=== PATIENT | female | born 1960 | race Caucasian/White ===

== ENCOUNTER → 2019-08-02 | Outpatient (CLI) | payer BC ==
[2019-08-02 19:58] LABS: Dermato. farinae IgE <0.10 kU/L; Oak IgE <0.10 kU/L
[2019-08-02 19:59] LABS: Elm IgE <0.10 kU/L; Ragweed,Common IgE <0.10 kU/L
[2019-08-02 20:00] LABS: Red Top (Bentgrass) IgE <0.10 kU/L
[2019-08-02 20:44] LABS: Alternaria alternata IgE <0.10 kU/L; Aspergillus fumagatus IgE <0.10 kU/L; Birch IgE <0.10 kU/L; Cladosporian herbarum IgE <0.10 kU/L; Cockroach IgE <0.10 kU/L; Maple (Box Elder) IgE <0.10 kU/L
[2019-08-02 20:46] LABS: Cat Epith & Dander IgE <0.10 kU/L; Dog Dander IgE <0.10 kU/L
== END | disposition home or self-care (01) ==
LOC: LABWHC1 12:43
PROVIDERS: ATTEND Internal Medicine Critical Care Medicine
DX: R06.00 Dyspnea, unspecified (principal)
CPT/HCPCS: 36415; 82103; 82785; 85008; 86003

== ENCOUNTER → 2019-08-17 | Outpatient (CLI) | payer BC ==
[2019-08-17 17:31] LABS: African American GFR (CKD) >90 (>60 ml/min/1.73 sqM); Blood Urea Nitrogen 21 mg/dL (7-17)
--- NOTE | 2019-08-18 09:29 | CT ---
EXAMINATION TYPE: CT chest w con DATE OF EXAM: 08/17/2019 COMPARISON: Prior CT chest 12/23/2012 HISTORY: Dyspnea CT DLP: 375.5 mGycm Automated exposure control for dose reduction was used. CONTRAST: CT scan of the chest is performed with IV Contrast, patient injected with 100 mL of Isovue 300. FINDINGS: LUNGS: The lungs are grossly clear, there is no concerning parenchymal mass or nodule identified. The re are parenchymal bands in the lower lobes likely reflecting scarring or atelectasis. There is no p leural effusion or pneumothorax seen. The tracheobronchial tree is patent. MEDIASTINUM: There are no greater than 1 cm hilar or mediastinal lymph nodes. No pericardial effusi on is seen. There are coronary artery calcifications AORTA: No additional significant abnormality is seen. OTHER: Postcholecystectomy change noted, low attenuation within the liver could be due to hepatic st eatosis. Degenerative change present at the sternoclavicular joint on the right, there is vacuum phen omenon present, thoracic spondylosis is present. IMPRESSION: Some basilar scarring or atelectasis present. Coronary artery disease. Additional findin gs above.
== END | disposition home or self-care (01) ==
LOC: RADCTMAIN 16:38
PROVIDERS: ATTEND Internal Medicine Critical Care Medicine
DX: I25.10 Atherosclerotic heart disease of native coronary artery without angina pectoris (principal); Z88.2 Allergy status to sulfonamides
CPT/HCPCS: 82565; 84520; 71260; 36415; Q9967

== ENCOUNTER 2021-03-16 10:43 | Inpatient (IN) | payer BC ==
[2021-03-17 12:25] VITALS: BMI 34.2
[2021-03-21 08:24] VITALS: BP 186/99; RESP 19; TEMP 97.9
[2021-03-21 09:43] VITALS: PULSE 78
== END 2021-03-21 13:44 | disposition home or self-care (01) | DRG 194 ==
LOC: EC 10:43 → 3SCARD 12:56 → 4SSUR 14:00
PROVIDERS: ADMIT Internal Medicine; ATTEND Internal Medicine
DX: J18.9 Pneumonia, unspecified organism (principal); E44.1 Mild protein-calorie malnutrition; R18.8 Other ascites; Z20.822 Contact with and (suspected) exposure to COVID-19; E11.9 Type 2 diabetes mellitus without complications; F41.9 Anxiety disorder, unspecified; K20.90 Esophagitis, unspecified without bleeding; E88.01 Alpha-1-antitrypsin deficiency; Z79.4 Long term (current) use of insulin; E78.5 Hyperlipidemia, unspecified; N20.0 Calculus of kidney; E87.70 Fluid overload, unspecified; R11.2 Nausea with vomiting, unspecified; R19.7 Diarrhea, unspecified; J45.909 Unspecified asthma, uncomplicated; I10 Essential (primary) hypertension; Z90.49 Acquired absence of other specified parts of digestive tract; Z98.891 History of uterine scar from previous surgery; Z88.2 Allergy status to sulfonamides; Z79.82 Long term (current) use of aspirin; Z79.899 Other long term (current) drug therapy; Z79.51 Long term (current) use of inhaled steroids; Z87.01 Personal history of pneumonia (recurrent); Z68.34 Body mass index [BMI] 34.0-34.9, adult; Z91.011 Allergy to milk products
CPT/HCPCS: 36415; 71046; 74177; 80048; 80053; 82103; 83036; 83605; 84484; 85025; 85610; 85730; 87040; 87070; 87205; 87449; 87635; 93005; 94640; 96365; 96375; 99285

== ENCOUNTER 2021-07-16 09:54 | Emergency (ER) | payer BC ==
[2021-07-16 10:10] VITALS: BP 130/80; RESP 18; TEMP 98.5
[2021-07-16] MEDS ORDERED: DEXAMETHASONE SOD PHOSPHATE 10 MG/ML 1 ML VIAL IV STA (10:17)
[2021-07-16 10:46] LABS: Basophils % (A) 1 %; Eosinophils # (A) 0.3 k/uL (0-0.7); Eosinophils % (A) 3 %; HCT 39.3 % (34.0-46.0); HGB 12.9 gm/dL (11.4-16.0); Lymphocytes # (A) 1.9 k/uL (1.0-4.8); Lymphocytes % (A) 25 %; MCH 29.4 pg (25.0-35.0); MCHC 32.7 g/dL (31.0-37.0); MCV 89.7 fL (80.0-100.0); Mean Platelet Volume 7.4; Monocytes # (A) 0.5 k/uL (0-1.0); Monocytes % (A) 7 %; Neutrophils # (A) 4.6 k/uL (1.3-7.7); Neutrophils % (A) 60 %; Platelet Count 292 k/uL (150-450); RBC 4.38 m/uL (3.80-5.40); RDW 12.8 % (11.5-15.5); WBC 7.7 k/uL (3.8-10.6)
[2021-07-16 10:58] LABS: ALT 34 U/L (4-34); AST 39 U/L (14-36); African American GFR (CKD) >90 (>60 ml/min/1.73 sqM); Albumin 4.5 g/dL (3.5-5.0); Alkaline Phosphatase 67 U/L (38-126); Anion Gap 12 mmol/L; Blood Urea Nitrogen 17 mg/dL (7-17); Calcium 9.7 mg/dL (8.4-10.2); Carbon Dioxide 24 mmol/L (22-30); Chloride 100 mmol/L (98-107); Glucose 182 mg/dL (74-99); Non-African American GFR(CKD) >90 (>60 ml/min/1.73 sqM); Potassium 3.9 mmol/L (3.5-5.1); Sodium 136 mmol/L (137-145); Total Bilirubin 0.5 mg/dL (0.2-1.3); Total Protein 7.4 g/dL (6.3-8.2)
[2021-07-16 11:03] LABS: INR 0.9 (<1.2)
--- NOTE | 2021-07-16 11:07 | XR ---
EXAMINATION TYPE: XR chest 2V DATE RECEIVED ON: 07/16/2021 DATE PERFORMED: 07/16/2021 COMPARISON: NONE HISTORY: Difficulty breathing history of asthma TECHNIQUE: Frontal and lateral views of the chest are obtained. FINDINGS: The heart size is normal. The pulmonary vasculature is normal. There is mild increase in filtrated along the right middle lobe better visualized on the lateral projection. Previous left lowe r lobe infiltrate has resolved. IMPRESSION: 1. Right middle lobe infiltrate. Correlate for atelectasis.
--- NOTE | 2021-07-16 11:09 | ED ---
SOB HPI - General Chief Complaint: Shortness of Breath Stated Complaint: sorethroat Time Seen by Provider: 07/16/21 10:12 Source: patient, RN notes reviewed Mode of arrival: ambulatory Limitations: no limitations - History of Present Illness Initial Comments: Patient is a 61-year-old female that presents to emergency department complaining of bronchitis without getting better. She notes she was diagnosed on was given amoxicillin for possible pneumonia. Patient notes that she has not been tugging at her she is still having shortness of breath on exertion. She was otherwise well-appearing. She denied any Covid test recently. She was in no apparent distress. She denied any chest pain headache nausea vomiting diarrhea constipation fever fatigue chills. - Related Data Home Medications Medication Instructions Recorded Confirmed Albuterol Inhaler [Ventolin Hfa 2 puff INHALATION RT-Q4H PRN 03/16/21 03/16/21 Inhaler] Aspirin EC [Ecotrin Low Dose] 81 mg PO DAILY 03/16/21 03/16/21 Atorvastatin [Lipitor] 20 mg PO DAILY 03/16/21 03/16/21 Benzonatate [Tessalon Perles] 100 mg PO TID PRN 03/16/21 03/16/21 Budesonide/Glycopyr/Formoterol 2 puff INHALATION RT-BID 03/16/21 03/16/21 [Breztri Aerosphere Inhaler] Ergocalciferol [Vitamin D2 (1250 1,250 mcg PO Q7D 03/16/21 03/16/21 Mcg = 74617 Iu)] Fluticasone Nasal [place] [Flonase 1 spr EA NOSTRIL DAILY 03/16/21 03/16/21 Nasal [place]] Fluticasone/Umeclidin/Vilanter 1 puff INHALATION RT-HS 03/16/21 03/16/21 [Trelegy Ellipta 100-62.5-25] HYDROcodone/APAP 10-325MG [[place] 1 tab PO QID 03/16/21 03/16/21 10-325] Insulin Aspart [NovoLOG Flexpen] 20 units SQ AC-BID@0800,1700 03/16/21 03/16/21 Insulin Glargine,Hum.rec.anlog 25 unit SQ HS 03/16/21 03/16/21 [Lantus Solostar Pen] Ipratropium-Albuterol Nebulize 3 ml INHALATION RT-DAILY 03/16/21 03/16/21 [Duoneb 0.5 mg-3 mg/3 ml Soln] Liraglutide [Victoza 3-Laci] 1.8 mg SQ DAILY 03/16/21 03/16/21 Losartan/Hydrochlorothiazide 1 tab PO DAILY 03/16/21 03/16/21 [Hyzaar 100-25 Tablet] Montelukast [Singulair] 10 mg PO HS 03/16/21 03/16/21 Ondansetron Odt [Zofran ODT] 4 mg PO BID PRN 03/16/21 03/16/21 Previous Rx's Medication Instructions Recorded Cefuroxime Axetil [Ceftin] 500 mg PO BID 6 Days #12 tab 03/21/21 Ipratropium-Albuterol Nebulize 3 ml INHALATION BID PRN #90 ml 07/16/21 [Duoneb 0.5 mg-3 mg/3 ml Soln] predniSONE 50 mg PO DAILY #5 tab 07/16/21 Allergies Allergy/AdvReac Type Severity Reaction Status Date / Time milk AdvReac Unknown Verified 07/16/21 10:10 Sulfa (Sulfonamide AdvReac Nausea Verified 07/16/21 10:10 Antibiotics) Review of Systems ROS Statement: Those systems with pertinent positive or pertinent negative responses have been documented in the HPI. ROS Other: All systems not noted in ROS Statement are negative. Past Medical History Past Medical History: Diabetes Mellitus, Hypertension Additional Past Medical History / Comment(s): alpha one tripsen History of Any Multi-Drug Resistant Organisms: None Reported Past Surgical History: Section, Cholecystectomy, Tonsillectomy Additional Past Surgical History / Comment(s): endometroisis Past Psychological History: No Psychological Hx Reported Smoking Status: Never smoker Past Alcohol Use History: None Reported Past Drug Use History: None Reported - Past Family History Father Family Medical History: Cancer, Diabetes Mellitus Additional Family Medical History / Comment(s): colon cancer Mother Family Medical History: CVA/TIA General Exam Limitations: no limitations General appearance: alert, in no apparent distress Head exam: Present: atraumatic, normocephalic, normal inspection Eye exam: Present: normal appearance, PERRL, EOMI. Absent: scleral icterus, conjunctival injection, periorbital swelling ENT exam: Present: normal exam, mucous membranes moist Neck exam: Present: normal inspection Respiratory exam: Present: normal lung sounds bilaterally. Absent: respiratory distress, wheezes, rales, rhonchi, stridor Cardiovascular Exam: Present: regular rate, normal rhythm, normal heart sounds. Absent: systolic murmur, diastolic murmur, rubs, gallop, clicks Extremities exam: Present: normal inspection, full ROM, normal capillary refill. Absent: tenderness, pedal edema, joint swelling, calf tenderness Neurological exam: Present: alert, oriented X3 Psychiatric exam: Present: normal affect, normal mood Skin exam: Present: warm, dry, intact, normal color. Absent: rash Course Vital Signs 07/16/21 07/16/21 07/16/21 10:07 11:04 11:44 Temperature 98.5 F Pulse Rate 94 92 Respiratory 18 18 Rate Blood Pressure 130/80 O2 Sat by Pulse 94 L Oximetry 07/16/21 12:01 Temperature Pulse Rate 90 Respiratory Rate Blood Pressure O2 Sat by Pulse Oximetry Medical Decision Making - Medical Decision Making 61-year-old female complaining of shortness of breath on exertion diagnosed with bronchitis 4 days ago. Labs, chest x-ray, 10 mg of Decadron, Covid test ordered. Labs unremarkable. Covid test negative. Chest x-ray shows right middle lobe infiltrate. Patient was instructed to continue her antibiotics until complete and continue at home DuoNeb treatments. Patient's has bronchitis was informed that it may take some time to work over. Case discussed with Dr. Issa, patient discharge home. - Lab Data Result diagrams: 07/16/21 10:07/16/21 10:27 Lab Results 07/16/21 07/16/21 07/16/21 Range/Units 10:27 10: 10:27 WBC 7.7 (3.8-10.6) k/uL RBC 4.38 (3.80-5.40) m/uL Hgb 12.9 (11.4-16.0) gm/dL Hct 39.3 (34.0-46.0) % MCV 89.7 (80.0-100.0) fL MCH 29.4 (25.0-35.0) pg MCHC 32.7 (31.0-37.0) g/dL RDW 12.8 (11.5-15.5) % Plt Count 292 (150-450) k/uL MPV 7.4 Neutrophils % 60 % Lymphocytes % 25 % Monocytes % 7 % Eosinophils % 3 % Basophils % 1 % Neutrophils # 4.6 (1.3-7.7) k/uL Lymphocytes # 1.9 (1.0-4.8) k/uL Monocytes # 0.5 (0-1.0) k/uL Eosinophils # 0.3 (0-0.7) k/uL Basophils # 0.0 (0-0.2) k/uL PT 10.0 (9.0-12.0) sec INR 0.9 (<1.2) APTT 21.5 L (22.0-30.0) sec Sodium 136 L (137-145) mmol/L Potassium 3.9 (3.5-5.1) mmol/L Chloride 100 (98-107) mmol/L Carbon Dioxide 24 (22-30) mmol/L Anion Gap 12 mmol/L BUN 17 (7-17) mg/dL Creatinine 0.70 (0.52-1.04) mg/dL Est GFR (CKD-EPI)AfAm >90 (>60 ml/min/1.73 sqM) Est GFR (CKD-EPI)NonAf >90 (>60 ml/min/1.73 sqM) Glucose 182 H (74-99) mg/dL Plasma Lactic Acid Oral (0.7-2.0) mmol/L Calcium 9.7 (8.4-10.2) mg/dL Total Bilirubin 0.5 (0.2-1.3) mg/dL AST 39 H (14-36) U/L ALT 34 (4-34) U/L Alkaline Phosphatase 67 (38-126) U/L Total Protein 7.4 (6.3-8.2) g/dL Albumin 4.5 (3.5-5.0) g/dL Coronavirus (PCR) (Not Detectd) 07/16/21 07/16/21 Range/Units 10:27 10:27 WBC (3.8-10.6) k/uL RBC (3.80-5.40) m/uL Hgb (11.4-16.0) gm/dL Hct (34.0-46.0) % MCV (80.0-100.0) fL MCH (25.0-35.0) pg MCHC (31.0-37.0) g/dL RDW (11.5-15.5) % Plt Count (150-450) k/uL MPV Neutrophils % % Lymphocytes % % Monocytes % % Eosinophils % % Basophils % % Neutrophils # (1.3-7.7) k/uL Lymphocytes # (1.0-4.8) k/uL Monocytes # (0-1.0) k/uL Eosinophils # (0-0.7) k/uL Basophils # (0-0.2) k/uL PT (9.0-12.0) sec INR (<1.2) APTT (22.0-30.0) sec Sodium (137-145) mmol/L Potassium (3.5-5.1) mmol/L Chloride (98-107) mmol/L Carbon Dioxide (22-30) mmol/L Anion Gap mmol/L BUN (7-17) mg/dL Creatinine (0.52-1.04) mg/dL Est GFR (CKD-EPI)AfAm (>60 ml/min/1.73 sqM) Est GFR (CKD-EPI)NonAf (>60 ml/min/1.73 sqM) Glucose (74-99) mg/dL Plasma Lactic Acid Oral 1.5 (0.7-2.0) mmol/L Calcium (8.4-10.2) mg/dL Total Bilirubin (0.2-1.3) mg/dL AST (14-36) U/L ALT (4-34) U/L Alkaline Phosphatase (38-126) U/L Total Protein (6.3-8.2) g/dL Albumin (3.5-5.0) g/dL Coronavirus (PCR) Not Detected (Not Detectd) - Radiology Data Radiology results: report reviewed, image reviewed Chest x-ray: Right middle lobe infiltrate correlate for atelectasis. Disposition Clinical Impression: Bronchitis, Shortness of breath Disposition: HOME SELF-CARE Condition: Stable Instructions (If sedation given, give patient instructions): Acute Bronchitis (ED) Additional Instructions: Please return to the Emergency Department if symptoms worsen or any other concerns. Follow-up with primary care 1-2 days. Continue take antibiotics until complete. Is patient prescribed a controlled substance at d/c from ED?: No Referrals: Shay Henderson DO [Primary Care Provider] - 1-2 days Time of Disposition: 12:11
[2021-07-16 11:15] LABS: Partial Thromboplastin Time 21.5 sec (22.0-30.0)
[2021-07-16] MEDS ORDERED: IPRATROPIUM-ALBUTEROL 3 ML NEB INHALATION STA (11:38)
[2021-07-16 12:28] VITALS: PULSE 95
== END 2021-07-16 12:34 | disposition home or self-care (01) ==
LOC: EC 09:54
DX: J40 Bronchitis, not specified as acute or chronic (principal); E11.9 Type 2 diabetes mellitus without complications; I10 Essential (primary) hypertension; Z79.4 Long term (current) use of insulin; Z79.52 Long term (current) use of systemic steroids; Z79.51 Long term (current) use of inhaled steroids; Z79.82 Long term (current) use of aspirin; Z79.899 Other long term (current) drug therapy
CPT/HCPCS: 36415; 94640; 80053; 83605; 85025; 85610; 85730; 87635; 71046; 99285; 96374; J1100

== ENCOUNTER 2021-09-26 10:45 | Emergency (ER) | payer BC ==
[2021-09-26 10:51] VITALS: RESP 18; TEMP 98.3
[2021-09-26] MEDS ORDERED: SODIUM CHLORIDE 0.9% 500 ML 500 ML IV STA (11:23)
[2021-09-26] MEDS ORDERED: RX INFO: IV CONTRAST WAS GIVEN 1 EACH MISC MISCELLANE PRN (11:23)
--- NOTE | 2021-09-26 11:26 | ED ---
General Adult HPI - General Chief complaint: Recheck/Abnormal Lab/Rx Stated complaint: possible collapsed lung Time Seen by Provider: 09/26/21 11:12 Source: patient Mode of arrival: ambulatory Limitations: no limitations - History of Present Illness Initial comments: 61-year-old female presents to the emergency room for chest CT. Patient's primary care doctor told her she needed to emergently obtain CAT scan as she could not wait for outpatient scan. Patient reports that she has had a cough for a few weeks and been on Augmentin for 7 days for pneumonia. She was going to be switched to Levaquin today. States she is having productive sputum yel low in nature. Patient denies fevers. Slight shortness of breath.There was mass versus consolidation on chest x-ray. Patient has no other complaints at this time including chest pain, abdominal pain, nausea or vomiting, headache, or visual changes. - Related Data Home Medications Medication Instructions Recorded Confirmed Albuterol Inhaler [Ventolin Hfa 2 puff INHALATION RT-Q4H PRN 03/16/21 03/16/21 Inhaler] Aspirin EC [Ecotrin Low Dose] 81 mg PO DAILY 03/16/21 03/16/21 Atorvastatin [Lipitor] 20 mg PO DAILY 03/16/21 03/16/21 Benzonatate [Tessalon Perles] 100 mg PO TID PRN 03/16/21 03/16/21 Budesonide/Glycopyr/Formoterol 2 puff INHALATION RT-BID 03/16/21 03/16/21 [Breztri Aerosphere Inhaler] Ergocalciferol [Vitamin D2 (1250 1,250 mcg PO Q7D 03/16/21 03/16/21 Mcg = 68476 Iu)] Fluticasone Nasal [place] [Flonase 1 spr EA NOSTRIL DAILY 03/16/21 03/16/21 Nasal [place]] Fluticasone/Umeclidin/Vilanter 1 puff INHALATION RT-HS 03/16/21 03/16/21 [Trelegy Ellipta 100-62.5-25] HYDROcodone/APAP 10-325MG [[place] 1 tab PO QID 03/16/21 03/16/21 10-325] Insulin Aspart [NovoLOG Flexpen] 20 units SQ AC-BID@0800,1700 03/16/21 03/16/21 Insulin Glargine,Hum.rec.anlog 25 unit SQ HS 03/16/21 03/16/21 [Lantus Solostar Pen] Ipratropium-Albuterol Nebulize 3 ml INHALATION RT-DAILY 03/16/21 03/16/21 [Duoneb 0.5 mg-3 mg/3 ml Soln] Liraglutide [Victoza 3-Laci] 1.8 mg SQ DAILY 03/16/21 03/16/21 Losartan/Hydrochlorothiazide 1 tab PO DAILY 03/16/21 03/16/21 [Hyzaar 100-25 Tablet] Montelukast [Singulair] 10 mg PO HS 03/16/21 03/16/21 Ondansetron Odt [Zofran ODT] 4 mg PO BID PRN 03/16/21 03/16/21 Previous Rx's Medication Instructions Recorded Cefuroxime Axetil [Ceftin] 500 mg PO BID 6 Days #12 tab 03/21/21 Ipratropium-Albuterol Nebulize 3 ml INHALATION BID PRN #90 ml 07/16/21 [Duoneb 0.5 mg-3 mg/3 ml Soln] predniSONE 50 mg PO DAILY #5 tab 07/16/21 Allergies Allergy/AdvReac Type Severity Reaction Status Date / Time milk AdvReac Unknown Verified 09/26/21 10:48 Sulfa (Sulfonamide AdvReac Nausea Verified 09/26/21 10:48 Antibiotics) Review of Systems ROS Statement: Those systems with pertinent positive or pertinent negative responses have been documented in the HPI. ROS Other: All systems not noted in ROS Statement are negative. Past Medical History Past Medical History: Diabetes Mellitus, Hypertension Additional Past Medical History / Comment(s): alpha one tripsen History of Any Multi-Drug Resistant Organisms: None Reported Past Surgical History: Section, Cholecystectomy, Tonsillectomy Additional Past Surgical History / Comment(s): endometroisis Past Psychological History: No Psychological Hx Reported Smoking Status: Never smoker Past Alcohol Use History: None Reported Past Drug Use History: None Reported - Past Family History Father Family Medical History: Cancer, Diabetes Mellitus Additional Family Medical History / Comment(s): colon cancer Mother Family Medical History: CVA/TIA General Exam Limitations: no limitations General appearance: alert, in no apparent distress Head exam: Present: atraumatic Eye exam: Present: normal appearance, PERRL, EOMI. Absent: scleral icterus, conjunctival injection ENT exam: Present: normal exam, mucous membranes moist Neck exam: Present: normal inspection, full ROM. Absent: tenderness Respiratory exam: Present: normal lung sounds bilaterally, wheezes (slight wheezing). Absent: respiratory distress, rales, rhonchi, stridor Cardiovascular Exam: Present: regular rate, normal rhythm, normal heart sounds GI/Abdominal exam: Present: soft, normal bowel sounds. Absent: distended, tenderness Course Vital Signs 09/26/21 09/26/21 10:48 13:00 Temperature 98.3 F Pulse Rate 90 88 Respiratory 18 18 Rate Blood Pressure 143/80 133/83 O2 Sat by Pulse 95 Oximetry Medical Decision Making - Medical Decision Making Vitals are stable. Patient is well appearing. No respiratory distress. She does have a cough noted. CBC does show leukocytosis with a white count of 13.8. CMP unremarkable. COVID-19 detected. Patient was sent in by her doctor for a CT of the chest. This did show mild progression of consolidation involving the right upper lobe anterior segment most typical of chronic atelectasis. There is underlying pneumonia or neoplasm felt to be less likely but not entirely excluded I discussed these findings with patient. Patient has a prescription of Levaquin she is supposed to take. I did offer to switch this to azithromycin as this may have more benefit in a good patient's however she states this doesn't work for her and wants to continue Levaquin. I did recommend and offer antibody infusion but patient refused. Her daughter states they gave her the symptoms of Covid. Pt to be discharged home with copy of ct disc for her doctor. - Lab Data Result diagrams: 09/26/21 11:41 09/26/21 11:41 Lab Results 09/26/21 09/26/21 09/26/21 Range/Units 11:41 11:41 11:41 WBC 13.8 H (3.8-10.6) k/uL RBC 4.68 (3.80-5.40) m/uL Hgb 14.0 (11.4-16.0) gm/dL Hct 41.7 (34.0-46.0) % MCV 88.9 (80.0-100.0) fL MCH 29.9 (25.0-35.0) pg MCHC 33.6 (31.0-37.0) g/dL RDW 12.3 (11.5-15.5) % Plt Count 367 (150-450) k/uL MPV 7.8 Neutrophils % 61 % Lymphocytes % 28 % Monocytes % 7 % Eosinophils % 3 % Basophils % 1 % Neutrophils # 8.4 H (1.3-7.7) k/uL Lymphocytes # 3.8 (1.0-4.8) k/uL Monocytes # 0.9 (0-1.0) k/uL Eosinophils # 0.4 (0-0.7) k/uL Basophils # 0.1 (0-0.2) k/uL Sodium 137 (137-145) mmol/L Potassium 4.0 (3.5-5.1) mmol/L Chloride 101 (98-107) mmol/L Carbon Dioxide 25 (22-30) mmol/L Anion Gap 11 mmol/L BUN 24 H (7-17) mg/dL Creatinine 0.70 (0.52-1.04) mg/dL Est GFR (CKD-EPI)AfAm >90 (>60 ml/min/1.73 sqM) Est GFR (CKD-EPI)NonAf >90 (>60 ml/min/1.73 sqM) Glucose 85 (74-99) mg/dL Plasma Lactic Acid Oral (0.7-2.0) mmol/L Calcium 9.6 (8.4-10.2) mg/dL Total Bilirubin 0.7 (0.2-1.3) mg/dL AST 37 H (14-36) U/L ALT 35 H (4-34) U/L Alkaline Phosphatase 56 (38-126) U/L Total Protein 7.6 (6.3-8.2) g/dL Albumin 4.3 (3.5-5.0) g/dL Coronavirus (PCR) Detected A (Not Detectd) 09/26/21 Range/Units 11:41 WBC (3.8-10.6) k/uL RBC (3.80-5.40) m/uL Hgb (11.4-16.0) gm/dL Hct (34.0-46.0) % MCV (80.0-100.0) fL MCH (25.0-35.0) pg MCHC (31.0-37.0) g/dL RDW (11.5-15.5) % Plt Count (150-450) k/uL MPV Neutrophils % % Lymphocytes % % Monocytes % % Eosinophils % % Basophils % % Neutrophils # (1.3-7.7) k/uL Lymphocytes # (1.0-4.8) k/uL Monocytes # (0-1.0) k/uL Eosinophils # (0-0.7) k/uL Basophils # (0-0.2) k/uL Sodium (137-145) mmol/L Potassium (3.5-5.1) mmol/L Chloride (98-107) mmol/L Carbon Dioxide (22-30) mmol/L Anion Gap mmol/L BUN (7-17) mg/dL Creatinine (0.52-1.04) mg/dL Est GFR (CKD-EPI)AfAm (>60 ml/min/1.73 sqM) Est GFR (CKD-EPI)NonAf (>60 ml/min/1.73 sqM) Glucose (74-99) mg/dL Plasma Lactic Acid Oral 1.4 (0.7-2.0) mmol/L Calcium (8.4-10.2) mg/dL Total Bilirubin (0.2-1.3) mg/dL AST (14-36) U/L ALT (4-34) U/L Alkaline Phosphatase (38-126) U/L Total Protein (6.3-8.2) g/dL Albumin (3.5-5.0) g/dL Coronavirus (PCR) (Not Detectd) Disposition Clinical Impression: COVID-19, Cough, Consolidation lung Disposition: HOME SELF-CARE Condition: Good Instructions (If sedation given, give patient instructions): Coronavirus Disease 2019 (COVID-19) Additional Instructions: Please take prescriptions as prescribed by you doctor. Please follow-up with your doctor in one to 2 days. Follow-up on CAT scan results. Return to the emergency room for any worsening symptoms. Is patient prescribed a controlled substance at d/c from ED?: No Referrals: Shay Henderson DO [Primary Care Provider] - 1-2 days Time of Disposition: 13:55
[2021-09-26 11:55] LABS: Basophils # (A) 0.1 k/uL (0-0.2); Basophils % (A) 1 %; Eosinophils # (A) 0.4 k/uL (0-0.7); Eosinophils % (A) 3 %; HCT 41.7 % (34.0-46.0); Lymphocytes # (A) 3.8 k/uL (1.0-4.8); Lymphocytes % (A) 28 %; MCH 29.9 pg (25.0-35.0); MCHC 33.6 g/dL (31.0-37.0); MCV 88.9 fL (80.0-100.0); Mean Platelet Volume 7.8; Monocytes # (A) 0.9 k/uL (0-1.0); Monocytes % (A) 7 %; Neutrophils # (A) 8.4 k/uL (1.3-7.7); Neutrophils % (A) 61 %; Platelet Count 367 k/uL (150-450); RBC 4.68 m/uL (3.80-5.40); RDW 12.3 % (11.5-15.5); WBC 13.8 k/uL (3.8-10.6)
[2021-09-26 12:03] LABS: ALT 35 U/L (4-34); African American GFR (CKD) >90 (>60 ml/min/1.73 sqM); Albumin 4.3 g/dL (3.5-5.0); Anion Gap 11 mmol/L; Blood Urea Nitrogen 24 mg/dL (7-17); Calcium 9.6 mg/dL (8.4-10.2); Carbon Dioxide 25 mmol/L (22-30); Chloride 101 mmol/L (98-107); Glucose 85 mg/dL (74-99); Non-African American GFR(CKD) >90 (>60 ml/min/1.73 sqM); Sodium 137 mmol/L (137-145); Total Bilirubin 0.7 mg/dL (0.2-1.3); Total Protein 7.6 g/dL (6.3-8.2)
[2021-09-26 12:26] LABS: AST 37 U/L (14-36); Alkaline Phosphatase 56 U/L (38-126)
--- NOTE | 2021-09-26 13:22 | CT ---
EXAMINATION TYPE: CT chest w con DATE OF EXAM: 09/26/2021 COMPARISON: 08/17/2019, 03/18/2021 HISTORY: mass vs consolidation CT DLP: 359.2 mGycm Automated exposure control for dose reduction was used. TECHNIQUE: CT scan of the chest is performed with IV Contrast, patient injected with 100 mL of Isovue 300. MIP Images are created on CT scanner and reviewed. 3D reconstructed images are created on an independent workstation and reviewed. FINDINGS: LUNGS: Vague subsegmental consolidation seen in the anterior segment right upper lobe has slightly pr ogressed from prior exam most likely related to chronic atelectasis. No pleural effusion or pneumotho rax. No focal pneumonia. MEDIASTINUM: There are no greater than 1 cm hilar or mediastinal lymph nodes. No pericardial effusi on is seen. Coronary artery calcification. OTHER: Hypertrophic and degenerative change of the spine. Postcholecystectomy changes noted. IMPRESSION: 1. Mild progression of consolidation involving the right upper lobe anterior segment most typical of chronic atelectasis. Underlying pneumonia or neoplasm felt less likely but not entirely excluded martin elate clinically.
[2021-09-26 13:51] VITALS: BP 133/83; PULSE 88
== END 2021-09-26 14:04 | disposition home or self-care (01) ==
LOC: EC 10:45
DX: U07.1 COVID-19 (principal); J12.82 Pneumonia due to coronavirus disease 2019; D72.829 Elevated white blood cell count, unspecified; I10 Essential (primary) hypertension; E11.9 Type 2 diabetes mellitus without complications; Z91.011 Allergy to milk products; Z88.2 Allergy status to sulfonamides; Z79.899 Other long term (current) drug therapy; Z79.4 Long term (current) use of insulin; Z79.82 Long term (current) use of aspirin; Z79.84 Long term (current) use of oral hypoglycemic drugs
CPT/HCPCS: 36415; 80053; 83605; 85025; 87635; 71260; 99285; Q9967

== ENCOUNTER → 2022-07-23 | Outpatient (CLI) | payer BC ==
--- NOTE | 2022-07-23 09:54 | MR ---
EXAMINATION TYPE: MR lumbar spine wo con DATE OF EXAM: 07/23/2022 COMPARISON: NONE HISTORY: Low back pain that radiates down both legs due to fall off porch and landed on object. TECHNIQUE: T1 and T2 axial and sagittal images of the lumbar spine are submitted. FINDINGS: There is no abnormal signal seen within the visualized spinal cord or paraspinal soft tissu es. At L1-2 there is there is degenerative disc disease and disc desiccation. No disc herniation or canal stenosis foraminal. At L2-3 there is no degenerative disc disease or disc herniation. No canal stenosis or foraminal. Hyp ertrophic change since. At L3-4 there is disc desiccation with hypertrophic facet arthropathy. No canal stenosis or foraminal . Encroachment. At L4-5 there is grade 1 anterolisthesis with advanced facet arthropathy. Broad-based bulging results in mild flattening of the thecal sac. Hypertrophic changes and ligamentum flavum results in borderli ne central stenosis, mild right and moderate left At L5-S1 there is disc desiccation with advanced facet arthropathy there is a synovial cyst extending off the left facet resulting in lateral compression of thecal sac measuring 8 mm. There is circumfer ential disc bulging greater laterally to the left with mild left-sided foraminal encroachment. IMPRESSION: 1. Advanced facet arthropathy L4-5 and L5-S1 with grade 1 anterolisthesis of L4 on L5. Findings resul t in bilateral foraminal encroachment and borderline central stenosis L4-L5. 2. Advanced facet arthropathy at L5-S1 with disc bulging greater laterally to the left. There is an 8 mm synovial cyst on the left resulting in lateral compression of the thecal sac. Foraminal encroachm ent bilaterally greater on the left secondary to left lateral disc bulging or small protrusion.
== END | disposition home or self-care (01) ==
LOC: RADMRIMAIN 08:27
PROVIDERS: ATTEND Orthopaedic Surgery
DX: M43.16 Spondylolisthesis, lumbar region (principal); M47.816 Spondylosis without myelopathy or radiculopathy, lumbar region; M48.061 Spinal stenosis, lumbar region without neurogenic claudication; M51.26 Other intervertebral disc displacement, lumbar region
CPT/HCPCS: 72148

== ENCOUNTER → 2022-09-12 | Outpatient (CLI) | payer BC ==
[2022-09-12 10:09] VITALS: BP 138/71; PULSE 78; RESP 16; TEMP 97.4
--- NOTE | 2022-09-12 14:43 | P.PAINPG ---
PQRS Measure Charge Sheet Comment: HISTORY OF PRESENT ILLNESS: 62 yr old female as a referral from Dr Xavier presents today w severe and chronic LBP x 2 yrs secondary to for evaluation. Pt states pain level is at 9/10 in intensity, constant, localized in the lower lumbar spine, sharp/ burning in character w shooting pain towards the BL hips, L knee and BLEs. Pain is provoked by standing/ walking for periods of 30 min or more. Pain is alleviated by PT x 6 wks in Aug 2022, heat, medications ([place], Ibuprofen), topicals, repositioning and rest. PMH: Diabetes Mellitus, HTN, Endometriosis, Alpha-1 Tripsen Deficiency PSH: Section, Cholecystectomy, Tonsillectomy SH: Negative x3 FH: Fa- Colon CA/ DM. Mo- CVA/ TIA. All: See list Meds: See list REVIEW OF ORGAN SYSTEMS: CONSTITUTIONAL: No fevers or chills. No recent weight loss. NEUROLOGICAL: + numbness and tingling along the distal extremities. No seizure disorders or headaches. MUSCULOSKELETAL: + pain PSYCHIATRIC: Denies current depression or suicidal thoughts. Physical Examinations : Constitutional : Cooperative , not in acute distress . Neurologic : Cranial nerve II to XII intact. No focal neurological deficits. Psychiatric : alert & oriented x 3. Matching mood & appropriate affect. Judgment & insight intact. Musculoskeletal : Cervical Spine Motor strength in the deltoid and b iceps: Normal right side. Normal Left side Motor strength biceps and the wrist extensors: Normal right side . Normal left side Motor strength in the triceps muscle: Normal right side. Normal left side Deep tendon reflexes: Normal at the biceps. Normal at Brachioradialis. Normal at triceps Vertebral body tenderness to deep palpation over Cervical facet loading test: positive bilaterally Spurling test: positive bilaterally Neck distraction test: positive bilaterally Jana sign: positive bilaterally Lumbar spine Motor strength lower extremities ,thigh and legs 5/5 Right side , 5/5 Left side Deep tendon reflexes : Normal Knee Jerk. Normal Ankle Jerk Vertebral body tenderness over L4 Lumbar facet Loading Test: positive Right / positive Left Range of motion of the lumbar spine Flexion 30 degrees, extension 10 degrees Straight Leg Raise test: Left/ Right positive at degree Adan test: positive right / positive left. Severe tenderness over the Sacroiliac joint on the Right / Left sides Gaenslen test: positive bilaterally Seated flexion test: positive bilaterally. Sacral spine : Severe tenderness over the Sacroiliac joint: right side / left side Range of motion: Flexion of the lumbar spine <60 degrees Range of motion: Extension of the lumbar spine <20 degrees Gaenslen's Test positive Gamaliel's Test positive Adan test: positive right side / left side Thigh Thrust Test Sacral Thrust Test Imaging: MRI without contrast of the lumbar spine from 07/23/22 reviewed Assessment/ Plan : Lumbar DDD, lumbar anterolisthesis Recommendation of SHANNON L4-L5. May need a series of injections, up to 3 within a 6 month timeframe, for optimal pain relief. Risks, benefits of procedure discussed and patient verbalized understanding. Admits to aspirin or anti- coagulant use or medical history of diabetes. Protocol for discontinuation/ continuation of medications kanchan procedure discussed. All questions answered. I have spent greater than 30 minutes on patient care today. Dr Pierson was available by phone for the evaluation of this patient. The time was used to review the medical records including relevant urine studies and Prescription history (MAPs), review of the available imaging, evaluation and examination of the patient, coordination of care with the medical staff and if applicable referring physicians, as well as creation of the medical record Home Medications: Ambulatory Orders Albuterol Inhaler [Ventolin Hfa Inhaler] 2 puff INHALATION RT-Q4H PRN 03/16/21 Aspirin EC [Ecotrin Low Dose] 81 mg PO DAILY 03/16/21 Atorvastatin [Lipitor] 20 mg PO DAILY 03/16/21 Ergocalciferol [Vitamin D2 (1250 Mcg = 75696 Iu)] 1,250 mcg PO Q7D 03/16/21 Fluticasone Nasal [place] [Flonase Nasal [place]] 1 spr EA NOSTRIL DAILY 03/16/21 Fluticasone/Umeclidin/Vilanter [Trelegy Ellipta 100-62.5-25] 1 puff INHALATION RT-HS 03/16/21 HYDROcodone/APAP 10-325MG [[place] 10-325] 1 tab PO QID 03/16/21 Insulin Aspart [NovoLOG Flexpen] 20 units SQ AC-BID@0800,1700 03/16/21 Insulin Glargine,Hum.rec.anlog [Lantus Solostar Pen] 25 unit SQ HS 03/16/21 Ipratropium-Albuterol Nebulize [Duoneb 0.5 mg-3 mg/3 ml Soln] 3 ml INHALATION RT-DAILY 03/16/21 Losartan/Hydrochlorothiazide [Hyzaar 100-25 Tablet] 1 tab PO DAILY 03/16/21 Montelukast [Singulair] 10 mg PO HS 03/16/21 Ondansetron Odt [Zofran ODT] 4 mg PO BID PRN 03/16/21 Ipratropium-Albuterol Nebulize [Duoneb 0.5 mg-3 mg/3 ml Soln] 3 ml INHALATION BID PRN #90 ml 07/16/21 DULoxetine HCL [Cymbalta] 30 mg PO DAILY 09/12/22 Loratadine [Claritin] 10 mg PO DAILY 09/12/22 Controlled Substance Measures - Controlled Substance Measures Is patient prescribed a controlled substance at discharge?: No
== END ==
LOC: PNWHC3 09:31
PROVIDERS: ATTEND Specialist
DX: M43.16 Spondylolisthesis, lumbar region (principal); M51.36 Other intervertebral disc degeneration, lumbar region; E11.9 Type 2 diabetes mellitus without complications; I10 Essential (primary) hypertension; Z79.82 Long term (current) use of aspirin; Z79.4 Long term (current) use of insulin; Z79.01 Long term (current) use of anticoagulants; Z88.2 Allergy status to sulfonamides; Z91.011 Allergy to milk products
CPT/HCPCS: 99211

== ENCOUNTER 2022-10-17 08:36 | Day surgery (SDC) | payer BC ==
[2022-10-15 10:54] VITALS: BMI 37.0
[2022-10-17] MEDS ORDERED: LIDOCAINE 1% (10MG/ML) FOR IV START INTRADERMA PRN (08:54)
[2022-10-17] MEDS ORDERED: LACTATED RINGERS 1,000 ML IV SCH (08:54)
[2022-10-17 09:01] VITALS: TEMP 97.7
[2022-10-17] MEDS ORDERED: ONDANSETRON 4 MG/2 ML VIAL ONE (09:14)
[2022-10-17 09:22] LABS: Glucose,Whole Blood 153 mg/dL (70-110)
[2022-10-17] MEDS ORDERED: methylPREDNISolone ACETATE 40 MG/ML 1 ML VIAL ONE (09:23)
[2022-10-17] MEDS ORDERED: fentaNYL (PF) 50 MCG/ML 2 ML AMP ONE (09:23)
[2022-10-17] MEDS ORDERED: MIDAZOLAM 2 MG/2 ML VIAL ONE (09:23)
[2022-10-17] MEDS ORDERED: IOPAMIDOL M200 10 ML VIAL ONE (09:23)
--- NOTE | 2022-10-17 09:32 | P.PCN ---
Date of Procedure: 10/17/22 Procedure(s) Performed: PREOPERATIVE DIAGNOSIS: 1- Lumbar Degenerative Disc Diseases 2-Lumbar spondylosis with Facet arthropathy without myelopathy. POSTOPERATIVE DIAGNOSIS: Same as preop diagnosis. PROCEDURE 1. Lumbar epidural steroid injection under fluoroscopic guidance at the L4-5 level. (Fluoroscopy imaging was available in radiology department) 2. Lumbar epidurogram. ANESTHESIA: moderate sedation with intravenous Versed 2 mg ,and fentanyle 50 Mcg Sedation start time : 0 924 Sedation end time : 0930 EBL: Minimal PROCEDURE INDICATION: The patient with low back pain and radiculitis symptoms unresponsive to conservative treatment. Fluoroscopy was used to optimize visualization of the needle placement and to maximize safety. PROCEDURE DESCRIPTION / TECHNIQUE: The patient was seen and identified in the preoperative area. Risks, benefits, complications including but not limited to infections ,bleeding ,allergic reaction to the medications ,nerve damage and not complete pain releife , and alternatives were discussed with the patient. The patient agreed to proceed with the procedure and signed the consent. IV was started, and vital signs were stable. Patient was taken to the OR and time out was completed. The patient was placed in the prone position on procedure table and a pillow was placed under the abdomen to reduce lumbar lordosis. The lumbosacral area was prepped and draped in the usual sterile fashion.ere closely monitored during the procedure. Conscious sedation was used during the procedure to decrease patients anxiety. Vital signs was monitered during the entire procedure. Using anterior-posterior fluoroscopy, the L4-5 interlaminar space was identified and the skin over this site was marked and then infiltrated with 1% lidocaine subcutaneously. Subsequently, a 20-gauge Tuohy epidural needle was inserted and advanced toward the epidural space using the ``Loss of resistance technique and guided by AP and lateral fluoroscopy. The correct needle position in the epidural space was verified with the injection of 2 mL of the water soluble contrast dye Isovue 200 contrast and observing an excellent epidurogram with the epidural spread of the dye, after negative aspiration for blood and CSF and in the absence of paresthesias. Again after negative aspiration, a 6 ml mixture containing 40 mg of Depo-medrol ( Preservetive Free ), and 2 ml of preservative free Normal Saline, and 2 ml of preservative free lidocaine 1% solution was injected and a washout of epidurogram was seen. Needle was withdrawn intact, skin was cleansed, and bandages were applied. COMPLICATIONS: None DISPOSITION / PLANS: The patient was placed in a supine position and transferred to the recovery area in a stable condition for observation. There was no evidence of lower extremity motor or sensory deficit after the procedure. Patient was discharged from the recovery room after meeting discharge criteria. Home discharge instructions were given to the patient by the staff. The patient was reexamined prior to discharge. The patient will schedule a follow up in the clinic in 2-4 weeks.
[2022-10-17] MEDS ORDERED: IV FLUID CONTINUATION 1,000 ML IV ONE (09:36)
[2022-10-17 09:42] LABS: Glucose,Whole Blood 170 mg/dL (70-110)
[2022-10-17 09:51] VITALS: BP 110/73; PULSE 79; RESP 16
--- NOTE | 2022-10-17 09:57 | FL ---
EXAMINATION TYPE: FL guided pain mgmt statistic DATE OF EXAM: 10/17/2022 HISTORY: Fluoroscopy time 2 seconds of fluoroscopy provided. IMPRESSION: 1. Fluoroscopy time.
== END 2022-10-17 10:05 | disposition home or self-care (01) ==
LOC: ORPAIN 08:36
PROVIDERS: ATTEND Specialist
DX: M51.16 Intervertebral disc disorders with radiculopathy, lumbar region (principal); M47.26 Other spondylosis with radiculopathy, lumbar region; Z88.2 Allergy status to sulfonamides; Z91.011 Allergy to milk products
CPT/HCPCS: 62323; J2250; J1030; J3010; Q9966

== ENCOUNTER → 2022-11-04 | Outpatient (CLI) | payer BC ==
[2022-11-04 09:35] VITALS: BP 124/73; PULSE 77; TEMP 97.8
--- NOTE | 2022-11-04 14:31 | P.PAINPG ---
Objective - Vital Signs Vital signs: Intake & Output 11/03/22 11/04/22 11/04/22 18:59 06:59 18:59 Weight 86.183 kg PQRS Measure Charge Sheet Comment: A 62 yr old female w daughter at side with a history of severe and chronic LBP secondary to lumbar DDD and spondylosis with facet arthropathy without myelopathy presents today for evaluation s/p SHANNON L4-L5. Pt states she experienced 80% pain relief x 1 wk s/p procedure. Pain level is provoked at 7 /10 in intensity, intermittent, localized in the lumbar spine, throbbing in character w shooting towards the BL hip, LEs and feet. Pain is provoked by bending, lifting. Pain is alleviated with PT x 6 wks in Jul 2022, meds ([place], Ibu), topicals, heat, repositioning and rest . Interventional pain procedures completed include SHANNON L4-L5 Patient is currently on [place], Ibu Patient denies any side effects of the medication(s), denies excessive drowsiness or sleepiness, denies suicidal ideation and reports that the current pain medication is helping to control the pain and improve activities of daily living. Patient denies any motor or sensory deficits. Patient denies any fever or night sweats, denies any change in the bowel movements or urination. Physical Examination: -Constitutional: Cooperative. Not in acute distress . - Neurologic: Cranial nerve II to XII intact. No focal neurological deficits. - Psychatric: Alert & oriented x 3. Matching mood & appropriate affect. Judgment and insight intact. - Musculoskeletal: Cervical spine: Muscle bulk/ tone/ strength in the bilateral upper extremities normal Vertebral body tenderness to palpation over Spurling test positive Distraction test positive Facet loading test positive Thoracic spine Muscle bulk / tone/ strength in the bilateral paraspinal muscles normal Vertebral body tender to palpation over Facet loading test positive Lumbar spine: Motor bulk/ tone/ strength lower extremities , thigh and legs : 5/5 Deep tendon reflexes : Normal Knee Jerk. Normal Ankle Jerk . Vertebral body tenderness to palpation over Lumbar Facet Loading Test positive jump reflex over BL L4-L5, L5-S1 facets Straight Leg Raise: positive at 30 degrees right side/ left side Gaenslen's Test positive Sacral spine : Severe tenderness over the Sacroiliac joint: right side / left side Range of motion: Flexion of the lumbar spine <60 degrees Range of motion: Extension of the lumbar spine <20 degrees Gaenslen's Test positive Adan test: positive right side / left side Thigh Thrust Test Sacral Thrust Test Assessment and plan: Chronic LBP secondary to lumbar DDD, spondylosis with facet arthropathy without myelopathy Recommendation of BL facet block of the medial branches L4-L5, L5-S1 #1. May need a series, up until RFA, for optimal pain relief. Risks, benefits of procedure discussed and pt verbalized understanding. Admits to anticoagulant use or medical history of diabetes. Protocol for discontinuation/ continuation of medications kanchan procedure discussed. All patient questions answered I have spent less than 30 minutes on patient care today. Dr Pierson was available by phone for the evaluation of this patient. The time was used to review the medical records including relevant urine studies and Prescription history (MAPs), review of the available imaging, evaluation and examination of the patient, coordination of care with the medical staff and if applicable referring physicians, as well as creation of the medical record - Pain Location Bilateral Lower Back Non-Pharmacological Interventions: Heat, Inactivity Pharmacological Interventions: Epidural, PRN Medication, Scheduled Medication, Topical Medication PQRS Narrative: Hx Alcohol Use (MH) No Home Medications: Ambulatory Orders Albuterol Inhaler [Ventolin Hfa Inhaler] 2 puff INHALATION RT-Q4H PRN 03/16/21 Aspirin EC [Ecotrin Low Dose] 81 mg PO DAILY 03/16/21 Atorvastatin [Lipitor] 20 mg PO DAILY 03/16/21 HYDROcodone/APAP 10-325MG [[place] 10-325] 1 tab PO QID 03/16/21 Insulin Aspart [NovoLOG Flexpen] 20 units SQ AC-TID 03/16/21 Insulin Glargine,Hum.rec.anlog [Lantus Solostar Pen] 25 unit SQ HS 03/16/21 Montelukast [Singulair] 10 mg PO HS 03/16/21 Ipratropium-Albuterol Nebulize [Duoneb 0.5 mg-3 mg/3 ml Soln] 3 ml INHALATION BID PRN #90 ml 07/16/21 DULoxetine HCL [Cymbalta] 30 mg PO DAILY 09/12/22 Loratadine [Claritin] 10 mg PO DAILY 09/12/22 Azelastine HCl [Astepro] 137 mcg NASAL BID 10/15/22 Losartan/Hydrochlorothiazide [Losartan-Hctz 100-12.5 mg Tab] 1 tab PO DAILY 10/15/22 Semaglutide [Ozempic] 2 mg SQ Q7D 10/15/22 Controlled Substance Measures - Controlled Substance Measures Is patient prescribed a controlled substance at discharge?: No
== END ==
LOC: PNWHC3 08:56
PROVIDERS: ATTEND Specialist
DX: M47.816 Spondylosis without myelopathy or radiculopathy, lumbar region (principal); M51.36 Other intervertebral disc degeneration, lumbar region; G89.29 Other chronic pain; Z79.82 Long term (current) use of aspirin; Z88.2 Allergy status to sulfonamides; Z91.011 Allergy to milk products
CPT/HCPCS: 99211

== ENCOUNTER 2023-01-03 09:14 | Day surgery (SDC) | payer BC ==
[~2023-01-03 09:14] MED LIST: LACTATED RINGERS 1,000 ML IV SCH; LIDOCAINE 1% (10MG/ML) FOR IV START INTRADERMA PRN
[2023-01-03 09:38] VITALS: TEMP 97.6
[2023-01-03] MEDS ORDERED: ONDANSETRON 4 MG/2 ML VIAL ONE (09:46)
[2023-01-03] MEDS ORDERED: ONDANSETRON 4 MG/2 ML VIAL IVP ONE (09:50)
[2023-01-03 09:51] LABS: Glucose,Whole Blood 128 mg/dL (70-110)
[2023-01-03] MEDS ORDERED: MIDAZOLAM 2 MG/2 ML VIAL ONE (09:58)
[2023-01-03] MEDS ORDERED: methylPREDNISolone ACETATE 40 MG/ML 1 ML VIAL ONE (09:58)
[2023-01-03] MEDS ORDERED: ROPIVACAINE 5 MG/ML 20 ML AMPULE ONE (09:58)
[2023-01-03] MEDS ORDERED: fentaNYL (PF) 50 MCG/ML 2 ML AMP ONE (09:58)
--- NOTE | 2023-01-03 10:16 | P.PCN ---
Date of Procedure: 01/03/23 Procedure(s) Performed: PREOPERATIVE DIAGNOSIS : 1- Lumbar spondylosis with Facet Arthropathy without myelopathy . 2- Lumber degenerative disc disease POSTOPERATIVE DIAGNOSIS: 1- Lumbar spondylosis with Facet Arthropathy without myelopathy . 2- Lumber degenerative disc disease PROCEDURE: Diagnostic bilateral L3 , L4 , and L5 medial branch block under fluoroscopy guidance(fluoroscopy images available in the radiology Department ) ( To target the facet joint between bilateral L4-5 , and L5-S1 ) ANESTHESIA:, Monitored anesthesia care as per anesthesia department. EBL: Minimal COMPLICATION: None PROCEDURE INDICATION: Chronic low back pain secondary to Facet arthropathy unresponsive to conservative treatment. PROCEDURE DESCRIPTION: the patient was seen and identified in the preop holding area , risks and benefits and possible complications of the procedure and alternative were discussed with the patient, and the patient agreed to proceed with the procedure and signed the consent and vital signs monitored during the procedure and fluoroscopy was used to maximize the benefit and accuracy of the needle placement, and sedation was given to decrease patient anxiety, patient was taken to the procedure room and placed in prone position vital signs monitored in the back prepped with chlorhexidine X3 then under strict sterile technique using a right oblique fluoroscopy ,the junction of the transverse process and the superior articulating process of the right L3 , L4 , and L5 vertebra which corresponding to the fluoroscopy image of the eye of the Thomas dog on the block side for the medial branches and subsequently , after local infiltration of skin and subcu tissuies with Ropivacaine 0.5 % , one mL at each level ,then 22-gaug 5 inches long Quincke-type needles , 3 needle was used , each one of them placed at the junction of the base of the transverse process and the superior articular process at the appropriate level, and the needle was advanced until the periosteum contacted, needle placement confirmed with AP oblique and lateral view and after appropriate needle placement confirmed, and after negative aspiration for heme and CSF and there was no paresthesia 1-1/2 mL of Ropivacaine 0.5% mixed with 20 mg Depo-Medrol , then half mL injected at each level after negative aspiration the needle subsequently removed and the same procedure repeated for the left side at left side at L3 , L4 and L5 levels. At the end of the procedure and the needles removed and a bandage applied after the skin was cleaned the cleaning solution patient taken to recovery room in stable condition and monitors in the recovery room for 20-30 minutes and discharged home in stable condition after discharge criteria met and patient will follow up with the pain clinic in 2-4 weeks
[2023-01-03] MEDS ORDERED: IV FLUID CONTINUATION 650 ML IV ONE (10:21)
[2023-01-03 10:28] VITALS: RESP 20
[2023-01-03 10:46] VITALS: BP 133/74; PULSE 82
--- NOTE | 2023-01-03 10:51 | FL ---
EXAMINATION TYPE: FL guided pain mgmt statistic DATE OF EXAM: 01/03/2023 HISTORY: Fluoroscopy time 0.20762 DAP. of fluoroscopy provided. IMPRESSION: 1. Fluoroscopy time.
== END 2023-01-03 11:00 ==
LOC: ORPAIN 09:14
PROVIDERS: ATTEND Specialist
DX: M51.36 Other intervertebral disc degeneration, lumbar region (principal); M47.816 Spondylosis without myelopathy or radiculopathy, lumbar region; G89.29 Other chronic pain; I10 Essential (primary) hypertension; E78.5 Hyperlipidemia, unspecified; E11.9 Type 2 diabetes mellitus without complications; K91.0 Vomiting following gastrointestinal surgery; Z79.82 Long term (current) use of aspirin; Z79.4 Long term (current) use of insulin; Z88.2 Allergy status to sulfonamides; Z79.899 Other long term (current) drug therapy; Z98.890 Other specified postprocedural states
CPT/HCPCS: 64493; 64494; J2250; J1030; J2405; J3010; J2795

== ENCOUNTER → 2023-01-22 | Outpatient (CLI) | payer BC ==
[2023-01-22 11:47] VITALS: BP 133/86; PULSE 78; RESP 18; TEMP 97.7
--- NOTE | 2023-01-22 14:55 | P.PAINPG ---
PQRS Measure Charge Sheet Comment: A 62 yr old female w female syruper at side with a history of severe and chronic LBP secondary to lumbar DDD and spondylosis with facet arthropathy without myelopathy presents today for evaluation s/p BL facet block of the medial branches L4-L5, L5-S1 #1. Pt states she experienced 50% pain relief x 1 day s/p procedure. Pain level is provoked at 8/10 in intensity, constant, localized in the lower lumbar spine, achy/ sharp in character w shooting towards the BL hips and inner thigh. Pain is provoked by sitting. Pain is alleviated with PT x 8 wks in Sep 2022, heat, meds, topical, reclining, repositioning and rest. Interventional pain procedures completed include SHANNON L4-L5 x1, BL MBB L3-L5 x1 Patient is currently on [place], Ibu Patient denies any side effects of the medication(s), denies excessive drowsiness or sleepiness, denies suicidal ideation and reports that the current pain medication is helping to control the pain and improve activities of daily living. Patient denies any motor or sensory deficits. Patient denies any fever or night sweats, denies any change in the bowel movements or urination. Physical Examination: -Constitutional: Cooperative. Not in acute distress . - Neurologic: Cranial nerve II to XII intact. No focal neurological deficits. - Psychatric: Alert & oriented x 3. Matching mood & appropriate affect. Judgment and insight intact. - Musculoskeletal: Cervical spine: Muscle bulk/ tone/ strength in the bilateral upper extremities normal Vertebral body tenderness to palpation over Spurling test positive Distraction test positive Facet loading test positive TTP Thoracic spine Muscle bulk / tone/ strength in the bilateral paraspinal muscles normal Vertebral body tender to palpation over Facet loading test positive TTP Lumbar spine: Motor bulk/ tone/ strength lower extremities , thigh and legs : 5/5 Deep tendon reflexes : Normal Knee Jerk. Normal Ankle Jerk . Vertebral body tenderness to palpation over Lumbar Facet Loading Test positive Straight Leg Raise: positive at 30 degrees right side/ left side Gaenslen's Test positive Sacral spine : Severe tenderness over the Sacroiliac joint: right side / left side Range of motion: Flexion of the lumbar spine <60 degrees Range of motion: Extension of the lumbar spine <20 degrees Gaenslen's Test positive right side / left side Adan test: positive right side / left side Thigh Thrust Test positive right side / left side Sacral Thrust Test positive right side / left side Assessment and plan: Chronic LBP secondary to lumbar DDD, spondylosis with facet arthropathy without myelopathy Recommendation of BL SI injection. Risks, benefits of procedure discussed and pt verbalized understanding. Admits to anticoagulant use or medical history of diabetes. Protocol for discontinuation/ continuation of medications kanchan procedure discussed. All questions answered. I have spent less than 30 minutes on patient care today. Dr Pierson was available by phone for the evaluation of this patient. The time was used to review the medical records including relevant urine studies and Prescription history (MAPs), review of the available imaging, evaluation and examination of the patient, coordination of care with the medical staff and if applicable referring physicians, as well as creation of the medical record PQRS Narrative: Hx Alcohol Use (MH) No Home Medications: Ambulatory Orders Albuterol Inhaler [Ventolin Hfa Inhaler] 2 puff INHALATION RT-Q4H PRN 03/16/21 Aspirin EC [Ecotrin Low Dose] 81 mg PO DAILY 03/16/21 Atorvastatin [Lipitor] 20 mg PO HS 03/16/21 HYDROcodone/APAP 10-325MG [[place] 10-325] 1 tab PO QID 03/16/21 Insulin Aspart [NovoLOG Flexpen] 20 units SQ AC-TID 03/16/21 Insulin Glargine,Hum.rec.anlog [Lantus Solostar Pen] 25 unit SQ HS 03/16/21 Montelukast [Singulair] 10 mg PO HS 03/16/21 Ipratropium-Albuterol Nebulize [Duoneb 0.5 mg-3 mg/3 ml Soln] 3 ml INHALATION BID PRN #90 ml 07/16/21 DULoxetine HCL [Cymbalta] 30 mg PO DAILY 09/12/22 Azelastine HCl [Astepro] 137 mcg NASAL BID 10/15/22 Losartan/Hydrochlorothiazide [Losartan-Hctz 100-12.5 mg Tab] 1 tab PO DAILY 10/15/22 Semaglutide [Ozempic] 2 mg SQ WE 10/15/22 Controlled Substance Measures - Controlled Substance Measures Is patient prescribed a controlled substance at discharge?: No
== END ==
LOC: PNWHC3 10:21
PROVIDERS: ATTEND Specialist
DX: M51.36 Other intervertebral disc degeneration, lumbar region (principal); M47.816 Spondylosis without myelopathy or radiculopathy, lumbar region; G89.29 Other chronic pain; Z79.82 Long term (current) use of aspirin; Z91.011 Allergy to milk products; Z88.2 Allergy status to sulfonamides
CPT/HCPCS: 99211

== ENCOUNTER 2023-02-18 08:40 | Day surgery (SDC) | payer BC ==
[2023-02-14 12:05] VITALS: BMI 39.4
[2023-02-18] MEDS ORDERED: LIDOCAINE 1% (10MG/ML) FOR IV START INTRADERMA PRN (08:51)
[2023-02-18 08:59] VITALS: TEMP 97.4
[2023-02-18] MEDS: LACTATED RINGERS 1,000 ML IV SCH ×2 (09:07→09:25)
[2023-02-18 09:12] LABS: Glucose,Whole Blood 131 mg/dL (70-110)
[2023-02-18] MEDS ORDERED: ONDANSETRON 4 MG/2 ML VIAL ONE (09:30)
[2023-02-18] MEDS ORDERED: fentaNYL (PF) 50 MCG/ML 2 ML AMP ONE (09:30)
[2023-02-18] MEDS ORDERED: ROPIVACAINE 5 MG/ML 20 ML AMPULE ONE (09:30)
[2023-02-18] MEDS ORDERED: IOPAMIDOL M200 10 ML VIAL ONE (09:30)
[2023-02-18] MEDS ORDERED: methylPREDNISolone ACETATE 40 MG/ML 1 ML VIAL ONE (09:30)
[2023-02-18] MEDS ORDERED: MIDAZOLAM 2 MG/2 ML VIAL ONE (09:30)
--- NOTE | 2023-02-18 09:41 | P.PCN ---
Date of Procedure: 02/18/23 Procedure(s) Performed: Procedure= bilateral sacroiliac joints steroid injection under fluoroscopy guidance (fluoroscopy image stored on file in the radiology Department ) Preoperative diagnosis= 1-sacroiliitis 2-lumbar degenerative disc disease 3- lumbar facet arthropathy Postoperative diagnosis=Same as preop Diagnosis . Complication = none Condition= stable Anesthesia= moderate sedation with intravenous Versed 2 mg , and fentanyl 50 micrograms . Sedation start time:932 Sedation end time :938 Indication for the procedure= patient complaining of low back pain , examination was positive for severe tenderness over the sacroiliac joints bilaterally and patient diagnosed with sacroiliitis, for this reason she was good candidate for sacroiliac joint steroid injection. Description of the procedure= procedure risk and benefits discussed with the p atient, including but not limited, risk of infection and bleeding, and ALLERGIC reaction to the medication and not complete pain relief and patient agreed with the preceding patient taken to the operating room, placed in prone position or standard monitors applied to the patient then after induction of anesthesia back prepped with chlorhexidine 3 times , Then under strict sterile technique, first I did the right sacroiliac joint the which was identified under fluoroscopy guidance been local infiltration of the skin and subcu interstitial with lidocaine 1% then 22-gauge Quincke Needle advanced slowly under fluoroscopy and placed in the right sacroiliac joint needle placement confirmed with AP and oblique and lateral view, then after that Isovue 200 one mL injected which confirmed the correct needle placement with the appropriate arthrogram of the sacroiliac joint, and after appropriate needle placement confirmed and after negative aspiration, or heme , then Ropivacaine 0.5% 4 mL, and 20 mg of Depo-Medrol mixed together and injected in the right sacroiliac joint after negative aspiration patient tolerated the procedure well without any complication. Then the left sacroiliac joint steroid injection done under strict sterile technique local infiltration of the skin and subcu interstitial at the location of the left sacroiliac joint then a 22-gauge Quincke Needle advanced slowly un marce fluoroscopy time placed in the left sacroiliac joint, needle placement confirmed with AP and oblique and lateral view then after appropriate needle placement confirmed, with the AP and oblique and lateral then after negative aspiration Isovue 201 mL injected showed arthropathy of the left sacroiliac joint, and after negative aspiration 0.5% Ropivacaine 4 mL and 20 mg of Depo- Medrol injected in the left sacroiliac joint after negative aspiration patient tolerated the procedure well that any complications and she will follow up in clinic 3 weeks
[2023-02-18] MEDS ORDERED: IV FLUID CONTINUATION 650 ML IV ONE (09:45)
[2023-02-18 09:48] VITALS: RESP 16
--- NOTE | 2023-02-18 10:06 | FL ---
EXAMINATION TYPE: FL guided pain mgmt statistic DATE OF EXAM: 02/18/2023 HISTORY: Fluoroscopy time Total dose area product (DAP) in mGy*m? (or similar): 0.21550 IMPRESSION: 1. Fluoroscopy time.
[2023-02-18 10:08] VITALS: BP 133/78; PULSE 78
== END 2023-02-18 10:26 | disposition home or self-care (01) ==
LOC: ORPAIN 08:40
PROVIDERS: ATTEND Specialist
DX: M46.1 Sacroiliitis, not elsewhere classified (principal); M51.36 Other intervertebral disc degeneration, lumbar region; M47.816 Spondylosis without myelopathy or radiculopathy, lumbar region; Z88.2 Allergy status to sulfonamides; Z91.011 Allergy to milk products; Z79.82 Long term (current) use of aspirin
CPT/HCPCS: 27096; J2250; J1030; J2405; J3010; Q9966; J2795

== ENCOUNTER → 2023-03-12 | Outpatient (CLI) | payer BC ==
[2023-03-12 10:23] VITALS: BP 141/65; PULSE 88; RESP 18; TEMP 97.8
--- NOTE | 2023-03-12 14:46 | P.PAINPG ---
PQRS Measure Charge Sheet Comment: A 62 yr old female with a history of severe and chronic LBP secondary to lumbar DDD and spondylosis with facet arthropathy without myelopathy presents today for evaluation s/p BL SI injections. Pt states she experienced 20 % pain relief x 3 wks s/p procedure. Pain level is provoked at 9 /10 in intensity, c onstant, localized in the BL lower lumbar spine, achy in character w shooting towards BL hips, groin, thigh. Pain is provoked by standing. Pain is alleviated with PT in Aug 2022, medicaitions, heat, ice, reclining and rest. Interventional pain procedures completed include BL SI injection, LESI, BL MBB L5-S1 x1 Patient is currently on [place], [place], Tyl Patient denies any side effects of the medication(s), denies excessive drowsiness or sleepiness, denies suicidal ideation and reports that the current pain medication is helping to control the pain and improve activities of daily living. Patient denies any motor or sensory deficits. Patient denies any fever or night sweats, denies any change in the bowel movements or urination. Physical Examination: -Constitutional: Cooperative. Not in acute distress . - Neurologic: Cranial nerve II to XII intact. No focal neurological deficits. - Psychatric: Alert & oriented x 3. Matching mood & appropriate affect. Judgment and insight intact. - Musculoskeletal: Cervical spine: Muscle bulk/ tone/ strength in the bilateral upper extremities normal Vertebral body tenderness to palpation over Spurling test positive Distraction test positive Facet loading test positive TTP Thoracic spine Muscle bulk / tone/ strength in the bilateral paraspinal muscles normal Vertebral body tender to palpation over Facet loading test positive TTP Lumbar spine: Motor bulk/ tone/ strength lower extremities , thigh and legs : 5/5 Deep tendon reflexes : Normal Knee Jerk. Normal Ankle Jerk . Vertebral body tenderness to palpation over L4, L5 Ruiz Test positive Lumbar Facet Loading Test positive Straight Leg Raise: positive at 30 degrees right side/ left side Gaenslen's Test positive Sacral spine : Severe tenderness over the Sacroiliac joint: right side / left side Range of motion: Flexion of the lumbar spine <60 degrees Range of motion: Extension of the lumbar spine <20 degrees Gaenslen's Test positive right side / left side Adan test: positive right side / left side Thigh Thrust Test positive right side / left side Sacral Thrust Test positive right side / left side Assessment and plan: Chronic LBP secondary to lumbar DDD, spondylosis with facet arthropathy without myelopathy Recommendation of Behavioral Health Eval for SCS Trial re: G89.4, M54.17. Script for eval provided. Viewed video on [facility]. Risks, benefits of procedure discussed and pt verbalized understanding. Admits to anticoagulant use or medical history of diabetes. Protocol for discontinuation/ continuation of medications kanchan procedure discussed. May follow up in 4 wks. All questions answered. I have spent less than 30 minutes on patient care today. Dr Pierson was available by phone for the evaluation of this patient. The time was used to review the medical records including relevant urine studies and Prescription history (MAPs), review of the available imaging, evaluation and examination of the patient, coordination of care with the medical staff and if applicable referring physicians, as well as creation of the medical record PQRS Narrative: Hx Alcohol Use (MH) No Home Medications: Ambulatory Orders Albuterol Inhaler [Ventolin Hfa Inhaler] 2 puff INHALATION RT-Q4H PRN 03/16/21 Aspirin EC [Ecotrin Low Dose] 81 mg PO DAILY 03/16/21 Atorvastatin [Lipitor] 20 mg PO HS 03/16/21 HYDROcodone/APAP 10-325MG [[place] 10-325] 1 tab PO QID 03/16/21 Insulin Aspart [NovoLOG Flexpen] 20 units SQ AC-TID 03/16/21 Insulin Glargine,Hum.rec.anlog [Lantus Solostar Pen] 25 unit SQ HS 03/16/21 Montelukast [Singulair] 10 mg PO HS 03/16/21 Ipratropium-Albuterol Nebulize [Duoneb 0.5 mg-3 mg/3 ml Soln] 3 ml INHALATION BID PRN #90 ml 07/16/21 DULoxetine HCL [Cymbalta] 30 mg PO DAILY 09/12/22 Azelastine HCl [Astepro] 137 mcg NASAL BID 10/15/22 Losartan/Hydrochlorothiazide [Losartan-Hctz 100-12.5 mg Tab] 1 tab PO DAILY 10/15/22 Semaglutide [Ozempic] 2 mg SQ WE 10/15/22 Controlled Substance Measures - Controlled Substance Measures Is patient prescribed a controlled substance at discharge?: No
== END ==
LOC: PNWHC3 09:40
PROVIDERS: ATTEND Specialist
DX: M51.17 Intervertebral disc disorders with radiculopathy, lumbosacral region (principal); M47.27 Other spondylosis with radiculopathy, lumbosacral region; G89.4 Chronic pain syndrome; Z79.82 Long term (current) use of aspirin; Z91.011 Allergy to milk products; Z88.2 Allergy status to sulfonamides
CPT/HCPCS: 99211

== ENCOUNTER 2023-06-20 11:42 | Day surgery (SDC) | payer BC ==
[2023-06-19 16:00] VITALS: BMI 39.0
[~2023-06-20 11:42] MED LIST changes: +HYDROmorphone 0.5 MG/0.5 ML SYRINGE IVP PRN
[2023-06-20] MEDS ORDERED: ONDANSETRON 4 MG/2 ML VIAL ONE (12:19)
[2023-06-20 12:20] LABS: Glucose,Whole Blood 121 mg/dL (70-110)
[2023-06-20] MEDS ORDERED: METOCLOPRAMIDE 5 MG/ML 2 ML VIAL ONE (12:28)
[2023-06-20] MEDS ORDERED: FAMOTIDINE 20 MG/2 ML VIAL IV ONE (12:34)
[2023-06-20] MEDS ORDERED: DEXAMETHASONE SOD PHOSPHATE 4 MG/ML 1 ML VIAL IV ONE (12:35)
[2023-06-20] MEDS ORDERED: fentaNYL (PF) 50 MCG/ML 2 ML AMP ONE (13:10)
[2023-06-20] MEDS ORDERED: MIDAZOLAM 2 MG/2 ML VIAL ONE (13:10)
[2023-06-20] MEDS ORDERED: ROPIVACAINE 5MG/ML 20ML VIAL ONE (13:17)
--- NOTE | 2023-06-20 14:04 | P.PCN ---
Date of Procedure: 06/20/23 Procedure(s) Performed: PROCEDURES: 1- spinal cord stimulator trial under fluoroscopic guidance X2 lead (Fluoroscopy images stored on file in radiology department ) 2- complex programing of the spinal cord stimulator . PREOPERATIVE DIAGNOSIS: 1-lumbar spondylosis with lumbar facet arthropathy without myelopathy. 2-lumbar degenerative disc disease. 3-sacroiliitis POSTOPERATIVE DIAGNOSIS: 1-same as preoperative diagnoses. ANESTHESIA: Monitored anesthesia care as per anesthesia department. BLOOD LOSS: Minimal. COMPLICATIONS: None. PROCEDURE INDICATIONS: The patient with a history of severe intractable low back pain who failed more conservative treatment measures. Patient had multiple pain interventions procedure and she got short-term benefit from it, discussed with the patient the option of referring her to have surgical spine intervention and she refused to have any spine surgery, patient was a candidate for spinal cord stimulator and she had the psychological testing done and showed that there is no contraindication for the spinal cord stimulator, patient is not interested in having any lumbar surgery PROCEDURE DESCRIPTION: The patient was seen and identified in the preoperative area. Risks, benefits, complications, and alternatives were discussed with the patient. The patient agreed to proceed with the procedure and signed the consent. IV was started.Patient was taken to the operating room and time out was performed. She received 2 gram of IV for prophylactic antibitics before the start of the procedure. The Thoracic and lumbar areas were prepped with Druaprep x2 and draped in the usual sterile fashion. Using sterile gowns and gloves, and after covering the fluoroscopic camera with a sterile drape, the procedure was proceeded on with. The fluoroscopic camera was placed in the AP position, and the T2-T3 interlaminar space was identified and localized in the left paramedian trajectory with ropivacaine 0.5% 10 ml . Under fluoroscopic guidance, a 14 gauge epimed 6 inches long epidural needle from the [employer] spinal cord stimulator kit was guided into the interlaminar space. Then using the right oblique fluoroscopy, anterior-posterior fluoroscopy, and xmrb-pp-deitkchare technique, the epidural space was accessed. The first lead (8 contacts leads from [facility] ) was passed and noted to be in the dorsal portion of the epidural space in the lateral view. Then using anterior-posterior view, the first lead was passed up to the top of T8 vertebra. Subsequently, a second 14 gauge Tuohy epidural needle was inserted just posterior to the first needle and was advanced toward the epidural space in a parallel direction to the first needle. Then using lateral fluoroscopy, anterior-posterior fluoroscopy, and ldiw-mh-etdwmixerd technique, the epidural space was accessed by the second needle into the same interlaminar space as the first needle. Then a second similar lead was passed and noted to be in the dorsal portion of the epidural space in the lateral view. Then using anterior- posterior view, the second lead was passed up to the top of T9 vertebra, and was left in a parallel position to the first lead. Subsequently, the leads were tested and they gave good stimulation on the low back area and the lower extremity , then after that the needle was removed and both legs secured using 3-0 silk, and then the dressing applied durind the procedure ,we performed complex programing of the spinal cord stimulator ,we changed pulse width ,amplitude and the frequencey of the stimulation and we got good coverage for the painful area ,the parasthesia overlaped the painfull area ,patients was satesfied withe the stimulation ,we got more than 80 % decrease in the pain level COMPLICATIONS: No acute complications. COMMENTS: Each lead used had 8 contacts with a total of 16 contacts used. DISPOSITION / PLANS: The patient was placed in a supine position and transferred to the recovery area in a stable condition for observation. There was no evidence of lower extremity motor or sensory deficit after the procedure. Patient was discharged from the recovery room after meeting discharge criteria. Home discharge instructions were given to the patient by the staff. The patient was reexamined prior to discharge.
[2023-06-20] MEDS ORDERED: IV FLUID CONTINUATION 1,000 ML IV ONE (14:06)
[2023-06-20] MEDS ORDERED: ONDANSETRON ODT 4 MG TAB PO ONE (14:57)
[2023-06-20 15:30] VITALS: BP 133/78; PULSE 81; RESP 16; TEMP 97.4
--- NOTE | 2023-06-20 19:28 | FL ---
Fluoroscopy History: LUMBAR RADICULOPATHY 1:06 sec fl time. .[id number] DAP. Kenna. -AB/CE
== END 2023-06-20 15:02 | disposition home or self-care (01) ==
LOC: ORPAIN 11:42
PROVIDERS: ATTEND Specialist
DX: M47.816 Spondylosis without myelopathy or radiculopathy, lumbar region (principal); M51.36 Other intervertebral disc degeneration, lumbar region; M46.1 Sacroiliitis, not elsewhere classified; K21.9 Gastro-esophageal reflux disease without esophagitis; I10 Essential (primary) hypertension; E88.01 Alpha-1-antitrypsin deficiency; E11.9 Type 2 diabetes mellitus without complications; F17.200 Nicotine dependence, unspecified, uncomplicated; Z79.82 Long term (current) use of aspirin; Z79.4 Long term (current) use of insulin; Z88.2 Allergy status to sulfonamides; Z79.899 Other long term (current) drug therapy
CPT/HCPCS: 63650; J2250; J1100; J2765; J2405; J3010; J3490; J2795; C1897 ×2; C1883